=== PATIENT | female | born 1995 ===

== ENCOUNTER 2020-01-18 11:43 | Outpatient (REF) | payer MEDICAID, SELFPAY ==
--- NOTE | 2020-01-18 | XR_ITS ---
EXAMINATION: XR SHOULDER, RIGHT CLINICAL INFORMATION: Right shoulder pain x1 month COMPARISON: None TECHNIQUE: AP external rotation, Grashey, scapular Y, and axillary views of the right shoulder. FINDINGS: The bones and soft tissues are normal. No fracture. Glenohumeral and acromioclavicular alignment is anatomic with normal joint space. No abnormal soft tissue calcifications. XR/XR shoulder RT min 2V IMPRESSION: Normal right shoulder.
== END 2020-01-18 11:44 | disposition home or self-care (01) ==
LOC: HO.HMGCX 11:43
PROVIDERS: PCP Internal Medicine; Visit Provider Internal Medicine
DX: M25.511 Pain in right shoulder (principal)
CPT/HCPCS: 73030

== ENCOUNTER 2022-03-05 11:44 | Outpatient (REF) | payer MEDICAID, SELFPAY ==
--- NOTE | ~2022-03-05 | XR_ITS ---
EXAMINATION: XR CHEST CLINICAL INFORMATION: Chest pain. COMPARISON: 09/02/2018 chest radiographs. TECHNIQUE: 2 views of the chest were obtained. FINDINGS: The lungs are clear. There are no pleural effusions. The heart and mediastinal structures are unremarkable. Mild thoracolumbar scoliosis is noted. XR/XR chest 2V IMPRESSION: No acute cardiopulmonary process.
== END 2022-03-05 11:45 | disposition home or self-care (01) ==
LOC: HO.HMGCLDS 11:44
PROVIDERS: PCP Internal Medicine; Visit Provider Internal Medicine
DX: R07.9 Chest pain, unspecified (principal)
CPT/HCPCS: 71046

== ENCOUNTER 2022-11-07 11:05 | Emergency (ER) | payer MEDICAID, SELFPAY ==
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
[2022-11-07 12:14] VITALS: BP 130/72; PULSE 70; RESP 17; TEMP 36.2; O2SAT 99; BMI 31.4
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
== END 2022-11-07 15:51 | disposition home or self-care (01) ==
PROVIDERS: Emergency Provider Emergency Medicine; PCP Internal Medicine
DX: S06.0X0A Concussion without loss of consciousness, initial encounter (principal); S13.4XXA Sprain of ligaments of cervical spine, initial encounter; V43.52XA Car driver injured in collision with other type car in traffic accident, initial encounter; B34.9 Viral infection, unspecified; Y93.89 Activity, other specified; Y92.415 Exit ramp or entrance ramp of street or highway as the place of occurrence of the external cause; Y99.9 Unspecified external cause status
CPT/HCPCS: 70450; 72125; 99282; 99284

== ENCOUNTER 2022-12-05 10:35 | Outpatient (REF) | payer MEDICAID, SELFPAY ==
--- NOTE | ~2022-12-05 | US_ITS ---
EXAMINATION: US THYROID CLINICAL INFORMATION: Thyroid nodule. COMPARISON: None available. TECHNIQUE: Linear transducer dow-scale and color Doppler examination with attention to the region of the thyroid. FINDINGS: SIZE: Measurements of the thyroid lobes and nodules are given in sagittal, anteroposterior and transverse dimensions respectively. Right Thyroid Lobe: 5.3 x 1.8 x 2.0 cm, volume 9.7 mL. Parenchyma: The gland echotexture is heterogeneous. Thyroid vascularity is normal. Left Thyroid Lobe: 5.4 x 1.6 x 1.9 cm, volume 8.7 mL. Parenchyma: The gland echotexture is heterogeneous. Thyroid vascularity is normal. Isthmus: 0.5 cm in maximum AP dimension. Estimated total number of nodules greater than or equal to 1 cm: 0. Senior Specialist nodules are described as follows: 1. Location: Right medial/mid. Size: 0.5 x 0.2 x 0.3 cm, volume 0.02 mL. Nodule characteristics: Composition: Solid/almost completely solid (2). Echogenicity: Hypoechoic (2). Shape: Not taller than wide (0). Margins: Ill-defined (0). Echogenic Foci: None (0). ACR TI-RADS total points: 4 ACR TI-RADS category: 4 2. Location: Left mid. Size: 0.4 x 0.2 x 0.4 cm, volume 0.01 mL. Nodule characteristics: Composition: Mixed cystic and solid (1). Echogenicity: Cannot be determined (1). Shape: Not taller than wide (0). Margins: Smooth (0). Echogenic Foci: None (0). ACR TI-RADS total points: 2 ACR TI-RADS category: 2 NODES: A 3.3 x 1.1 x 2.7 cm right submandibular lymph node is seen, showing good corticomedullary differentiation and focal cortical thickening at its lower pole. A 1.7 x 0.6 x 0.7 cm left submandibular lymph node is seen, showing good corticomedullary differentiation. US/US thyroid IMPRESSION: 1. Small bilateral thyroid nodules are seen, as detailed. These require no specific imaging follow-up. 2. There is a very mild goiter. 3. There is heterogeneous thyroid echotexture, which can be associated with thyroiditis. 4. There is a nonspecific enlarged right submandibular lymph node, for which management on a clinical basis is recommended. If of continued clinical concern, consider short-term follow-up ultrasound imaging in 3-6 months to ensure stability/regression. ACR TI-RADS RECOMMENDATION REFERENCE: Ultrasound-guided fine-needle aspiration, followup ultrasound, no further follow up. * TR1 (0 point) and TR2 (2 points): No FNA or follow up. * TR3 (3 points): FNA if more than or equal to 2.5 cm in maximum dimension, followup ultrasound in 1, 3 and 5 years if 1.5 to 2.4 cm in maximum dimension. * TR4 (4-6 points): FNA if more than or equal to 1.5 cm in maximum dimension, followup ultrasound in 1, 2, 3 and 5 years if 1 to 1.4 cm in maximum dimension. * TR5 (more than or equal to 7 points): FNA if more than or equal to 1 cm in maximum dimension, followup ultrasound every year for 5 years if 0.5 to 0.9 cm in maximum dimension. * TR3, TR4 or TR5 nodules that are below the size threshold for followup receive no follow up.
== END 2022-12-05 10:36 | disposition home or self-care (01) ==
LOC: HO.US 10:35
PROVIDERS: PCP Internal Medicine; Visit Provider Internal Medicine
DX: E07.9 Disorder of thyroid, unspecified (principal)
CPT/HCPCS: 76536

== ENCOUNTER 2024-03-03 08:49 | Outpatient (REF) | payer MEDICAID, SELFPAY ==
--- NOTE | ~2024-03-03 | XR_ITS ---
EXAMINATION: XR LEFT SHOULDER CLINICAL INFORMATION: Pain, no injury. Rule out DJD. COMPARISON: XR Chest 04/05/2021. TECHNIQUE: AP external rotation, Grashey, scapular Y, and axillary views of the left shoulder. FINDINGS: No visible acute fracture or dislocation. Glenohumeral and acromioclavicular alignment is anatomic with normal joint space. No abnormal soft tissue calcifications. No suspicious findings in the visualized lung. XR/XR shoulder LT min 2V IMPRESSION: No radiographic evidence of acute osseous abnormality. Study is assigned/presented to me for interpretation on Apr 09, 2024. Electronically signed by: João Gonzalez MD 04/09/2024 04:41 PM EST
== END 2024-03-03 08:50 | disposition home or self-care (01) ==
LOC: HO.HMGCX 08:49
PROVIDERS: PCP Internal Medicine; Visit Provider Internal Medicine
DX: M25.512 Pain in left shoulder (principal)
CPT/HCPCS: 73030